=== PATIENT | female | born 1935 | race Caucasian/White ===

== ENCOUNTER → 2017-03-17 | Outpatient (CLI) | payer OTHER ==
[~2017-03-17] MED LIST: ACIPHEX20 MG PO; ASPIRIN PO; DIOVAN PO; EVISTA60 MG PO; LIPITOR PO
--- NOTE | ~2017-03-17 | CT57 ---
[facility] RADIOLOGY TEXT RESULTS PATIENT: MEKHI TORRES LOCATION: [facility] : 37 UNIT #: [id number] AGE: [address]: Joya Miguel MD SEX: F ORDER DR: [id number] [facility]. [place], [place] [address] [id number] O MR#: [id number] [facility] #: [id number] NAME: MEKHI TORRES : 1935 SEX: F STUDY DATE/TIME: 03/17/2017 14:51 UNIT: [facility] ROOM: STUDY DESCRIPTION: CT Chest Wo Cont Attending Physician: Joya Miguel M.D. Referring Physician: Joya Miguel M.D. Ordering Physician: Joya Miguel M.D. Primary Care Physician: Joya Miguel M.D. MEDICAL IMAGING REPORT This report is preliminary unless electronic signature is present EXAM CT chest without contrast. INDICATIONS Left lower lobe infiltrate. Diagnosed with pneumonia 2 months ago. Follow up. TECHNIQUE CT chest was performed without contrast. Coronal and sagittal reformatted images were obtained. This CT exam was performed with one or more of the following radiation dose reduction techniques: automatic exposure control, adjustment of mA and/or kV according to patient size, and iterative reconstruction. COMPARISON Comparison with 09/07/2010. No other more recent chest CTs are available. FINDINGS There is biapical scarring. There is minimal scarring or atelectasis in the lingula. There is no airspace consolidation or suspicious pulmonary nodule. Calcified subcarinal lymph node. Coronary artery calcification. No pleural effusion. Limited imaging of the upper abdomen demonstrate partially imaged cyst within the right kidney and there is also a cyst in the left kidney. Bone windows demonstrate degenerative changes of the thoracic spine. IMPRESSION No evidence for airspace consolidation or suspicious pulmonary nodule. Scattered areas of scarring within the lungs. Dictated by... Rachid Rose M.D. [facility] RADIOLOGY TEXT RESULTS PATIENT: MEKHI TORRES LOCATION: [facility] : 37 UNIT #: [id number] AGE: [address]: Joya Miguel MD SEX: F ORDER DR: THIS IS AN ELECTRONICALLY VERIFIED REPORT Rachid Rose M.D. at 03/22/2017 1:32 PM LISBETH/nirali TD: 03/18/2017 02:57 JOB #: [id number] MEDICAL IMAGING REPORT Page 1 of 1 COPY
[2017-03-17 17:10] LABS: POC - CREATININE 1.31 mg/dL (0.44-1.03)
== END | disposition home or self-care (01) ==
LOC: CCAT 13:43
PROVIDERS: Family Medicine
DX: R91.8 Other nonspecific abnormal finding of lung field (principal); J98.4 Other disorders of lung
CPT/HCPCS: 71250; 82565